=== PATIENT | female | born 1980 | race Caucasian/White ===

== ENCOUNTER 2017-07-25 18:30 | Emergency (ER) | payer BC ==
[~2017-07-25] VITALS: Ht 165.1 cm; Wt 79.0 kg
[~2017-07-25 18:30] MED LIST: TRAM-10 PO
[2017-07-25 18:32] VITALS: Ht 165.1 cm; Wt 79.0 kg
[2017-07-25] MEDS ORDERED: HYDR25CA PO (19:14)
[2017-07-25] MEDS ORDERED: DULO60CA44 PO (19:14)
[2017-07-25] MEDS ORDERED: PRED20TA PO ×2 (19:16→21:31)
[2017-07-25 19:21] LABS: MANUAL MICROSCOPIC REQUIRED? NO; REVIEW REQ? NO; URINE APPEARANCE CLEAR (CLEAR); URINE BILIRUBIN NEG (NEG); URINE COLOR YELLOW; URINE NITRITE NEG (NEG); URINE PH 7.5 (4.5-7.5); URINE SPECIFIC GRAVITY 1.009 (1.000-1.030); UROBILINOGEN NEG (NEG); ZZUR CULT IF INDIC CLEAN CATCH NO
[2017-07-25 19:39] LABS: BLOOD UREA NITROGEN 19 mg/dl (7-18); BUN/CREATININE RATIO 17.1 (10-20); CALCIUM 8.6 mg/dl (8.5-10.1); CARBON DIOXIDE 27 mmol/L (21-32); CHLORIDE 103 mmol/L (98-107); GLUCOSE 112 mg/dl (70-99); POTASSIUM 4.1 mmol/L (3.5-5.1); SODIUM 135 mmol/L (136-145)
[2017-07-25 19:42] LABS: ALKALINE PHOSPHATASE 54 U/L (45-117); ALT/SGPT 23 U/L (12-78); AST/SGOT 8 U/L (15-37); C-REACTIVE PROTEIN < 0.29 mg/dl (0-0.29)
--- NOTE | 2017-07-25 20:02 | EMERGENCY ROOM VISIT NOTE ---
History Report prepared by Wily: Lacey Julio Under the Supervision of: Dr. Rodrigo Hernández M.D. 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 The patient was at work when her coworker noticed a rash starting on her left cheek. She decided to come in to the ED. The patient has also had bruising and itching on her sides and leg. The bruising is not painful. She saw her PCP for this and was started on steroids and an anti-itch medication. The bruising seems to be spreading, but the itching is improved. She denies applying anything to her face. She reports trying an oatmeal bath for the itching to no significant relief. She has tried oatmeal baths in the past without any reaction. She denies any fever, chills, blurry vision, nausea, vomiting, diarrhea, urinary symptoms, cough, or congestion. She denies any trauma or tick bites. She does not often go into the [place]. She denies any chance of . Her last period was 3 weeks ago. She is still taking the steroids. She has a family history of scleroderma, lupus, and MS. Source of History: patient Onset: THERMOFORMING OPERATOR Position: other (left cheek) Quality: other (rash) Timing: other (persistent) Associated Symptoms: No fevers, No chills, No cough, No nausea, No vomiting , No diarrhea, No urinary symptoms Note: Pt reports bruising and itching on her sides and leg. Pt denies blurry vision, congestion. Review of Systems See HPI for pertinent positives and negatives. A total of ten systems were reviewed and were otherwise negative. Past Medical & Surgical Medical Problems: (1) Cervical radiculopathy due to degenerative joint disease of spine Family History MS (multiple sclerosis) Scleroderma Social History Smoking Status: Never Smoker Marital Status: Occupation Status: employed Current/Historical Medications Scheduled Duloxetine Hcl (Cymbalta), 60 MG PO DAILY Hydroxyzine Pamoate (Vistaril), 25 MG PO TID Prednisone (Prednisone), 20 MG PO DIRECTED Prednisone (Prednisone), 0 PO DAILY Allergies Coded Allergies: Amoxicillin (Verified Allergy, Intermediate, HIGH FEVER, FULL BODY RASH, 07/25/17) Bupropion (Verified Allergy, Intermediate, "ALL OVER BODY RASH", 07/25/17) Cefaclor (Verified Allergy, Intermediate, HIGH FEVER, FULL BODY RASH, ) Erythromycin (Verified Allergy, Intermediate, HIGH FEVER, FULL BODY RASH, 07/25/17) Penicillins (Verified Allergy, Intermediate, HIGH FEVER, FULL BODY RASH, 07/25/17) Sulfa Antibiotics (Verified Allergy, Intermediate, HIGH FEVER, FULL BODY RASH, 07/25/17) Sulfamethoxazole w/Trimethoprim (Verified Allergy, Intermediate, HIGH FEVER, FULL BODY RASH, 07/25/17) Physical Exam Vital Signs Date Time Temp Pulse Resp B/P (MAP) Pulse Ox O2 Delivery O2 Flow Rate FiO2 07/25/17 22:01 36.6 79 16 116/76 97 07/25/17 21:00 79 16 116/76 97 Room Air 07/25/17 18:32 36.6 81 16 151/95 96 Room Air Physical Exam GENERAL: Awake, alert, anxious-appearing, in no acute distress HENT: Normocephalic, atraumatic. Oropharynx unremarkable. EYES: Normal conjunctiva. Sclera non-icteric. NECK: Supple. No nuchal rigidity. FROM. No JVD. RESPIRATORY: Clear to auscultation. CARDIAC: Regular rate, normal rhythm. Extremities warm and well perfused. Pulses equal. ABDOMEN: Soft, non-distended. No tenderness to palpation. No rebound or guarding. No masses. RECTAL: Deferred. MUSCULOSKELETAL: Chest examination reveals no tenderness. The back is symmetrical on inspection without obvious abnormality. There is no CVA tenderness to palpation. No joint edema. LOWER EXTREMITIES: Calves are equal size bilaterally and non-tender. No edema. No discoloration. NEURO: Normal sensorium. No sensory or motor deficits noted. SKIN: Scattered areas of small contusions throughout her body, left face has dry scaly, erythematous rash, without warmth or tenderness Medical Decision & Procedures Laboratory Results 07/25/17 20:12 Red Blood Count 3.99, Mean Corpuscular Volume 96.0, Mean Corpuscular Hemoglobin 33.3, Mean Corpuscular Hemoglobin Concent 34.7, Mean Platelet Volume 10.5, Neutrophils (%) (Auto) 85.5, Lymphocytes (%) (Auto) 9.6, Monocytes (%) (Auto) 4.4, Eosinophils (%) (Auto) 0.0, Basophils (%) (Auto) 0.1, Neutrophils # (Auto) 11.37, Lymphocytes # (Auto) 1.27, Monocytes # (Auto) 0.58, Eosinophils # (Auto) 0.00, Basophils # (Auto) 0.01 07/25/17 19:10 Test 07/25/17 18:52 07/25/17 19:10 07/25/17 20:12 Urine Color YELLOW Urine Appearance CLEAR (CLEAR) Urine pH 7.5 (4.5-7.5) Urine Specific [place] 1.009 (1.000-1.030) Urine Protein NEG (NEG) Urine Glucose (UA) NEG (NEG) Urine Ketones NEG (NEG) Urine Occult Blood NEG (NEG) Urine Nitrite NEG (NEG) Urine Bilirubin NEG (NEG) Urine Urobilinogen NEG (NEG) Urine Leukocyte Esterase NEG (NEG) Urine Test NEG (NEG) Erythrocyte Sedimentation Rate 6 mm/hr (0-21) Anion Gap 5.0 mmol/L (3-11) Est Creatinine Clear Calc Drug Dose 74.1 ml/min Estimated GFR () 75.3 Estimated GFR (Non- 65.0 BUN/Creatinine Ratio 17.1 (10-20) Calcium Level 8.6 mg/dl (8.5-10.1) Total Bilirubin 0.3 mg/dl (0.2-1) Direct Bilirubin < 0.1 mg/dl (0-0.2) Aspartate Amino Transf (AST/SGOT) 8 U/L (15-37) Alanine Aminotransferase (ALT/SGPT) 23 U/L (12-78) Alkaline Phosphatase 54 U/L (45-117) C-Reactive Protein < 0.29 mg/dl (0-0.29) Total Protein 7.6 gm/dl (6.4-8.2) Albumin 3.5 gm/dl (3.4-5.0) Lyme Disease IgG Antibody NEG (NEG) White Blood Count 13.28 K/uL (4.8-10.8) Red Blood Count 3.99 M/uL (4.2-5.4) Hemoglobin 13.3 g/dL (12.0-16.0) Hematocrit 38.3 % (37-47) Mean Corpuscular Volume 96.0 fL (80-100) Mean Corpuscular Hemoglobin 33.3 pg (25-34) Mean Corpuscular Hemoglobin Concent 34.7 g/dl (32-36) Platelet Count 288 K/uL (130-400) Mean Platelet Volume 10.5 fL (7.4-10.4) Neutrophils (%) (Auto) 85.5 % Lymphocytes (%) (Auto) 9.6 % Monocytes (%) (Auto) 4.4 % Eosinophils (%) (Auto) 0.0 % Basophils (%) (Auto) 0.1 % Neutrophils # (Auto) 11.37 K/uL (1.4-6.5) Lymphocytes # (Auto) 1.27 K/uL (1.2-3.4) Monocytes # (Auto) 0.58 K/uL (0.11-0.59) Eosinophils # (Auto) 0.00 K/uL (0-0.5) Basophils # (Auto) 0.01 K/uL (0-0.2) RDW Standard Deviation 43.8 fL (36.4-46.3) RDW Coefficient of Variation 12.5 % (11.5-14.5) Immature Granulocyte % (Auto) 0.4 % Immature Granulocyte # (Auto) 0.05 K/uL (0.00-0.02) Prothrombin Time 10.8 SECONDS (9.0-12.0) Prothromb Time International Ratio 1.0 (0.9-1.1) Activated Partial Thromboplast Time 25.0 SECONDS (21.0-31.0) Partial Thromboplastin Ratio 1.0 Laboratory results reviewed by mt ED Course 1842: The patient was evaluated in room C11B. A complete history and physical exam was performed. 2137: I reevaluated the patient. Discussed results and discharge instructions: She verbalized understanding and agreement. The patient is ready for discharge. Medical Decision I reviewed the patient's past medical history, medications, and the nursing notes as described above. Differential diagnosis: thrombocytopenia, coagulopathy, lyme disease, adverse medication reaction, accidental medication overdose. The patient is a 36-year-old woman who presents emergency Department with redness of her face and persistent unexplained bruising throughout her body after being treated by her PCP with prednisone and Benadryl for related pruritus per hpi. On arrival the patient is anxious appearing but in no acute distress, afebrile with stable vital signs. On exam she has dried scaly erythema the left side of her face without warmth, edema, or ttp. Patient does have scattered areas of bruising throughout her body. However, no petechiae or hand/foot involvement. Of note upon obtaining reconciliation of her medications it was discovered that the patient was inappropriately taking her prednisone and interpreted the instructions is taking 3 tablets 3 times a day and then 3 tablets twice a day and so forth. Labs unremarkable including platelets and coags within normal limits. Thus unclear etiology the patient's easy bruising at this time. Otherwise patient's facial rash is likely a dermatitis in the setting of her excessive prednisone use. However given this will provide additional steroid taper so patient can complete her steroid regimen safely. Patient does have a family history of autoimmune disorders and thus will help arrange a nonemergent follow-up with rheumatology, case management assisting. Of note the patient did have an equivocal Lyme screen, given no clear history of tick exposures or rashes Will wait for Western blot, this was discussed with the patient. Findings and plan for follow-up reviewed with patient. Patient agreeable and d/c'd per discharge instructions. Medication Reconcilliation Current Medication List: was personally reviewed by me Blood Pressure Screening Patient's blood pressure: Normal blood pressure Blood pressure disposition: Did not require urgent referral Impression Primary Impression: Multiple contusions Additional Impression: Dermatitis Scribe Attestation The scribe's documentation has been prepared under my direction and personally reviewed by me in its entirety. I confirm that the note above accurately reflects all work, treatment, procedures, and medical decision making performed by me. Departure Information Dispostion Home / Self-Care Prescriptions Prednisone (Prednisone) 20 Mg Tab 0 PO DAILY, #18 TAB 3 DAILY FOR 3 DAYS, THEN 2 DAILY FOR 3 DAYS, THEN 1 DAILY FOR 3 DAYS. Prov: Rodrigo Hernández M.D. 07/25/17 Referrals Lenny Dover DO (PCP) Maria Elena Davis MD Patient Instructions Bruises Contusions, ED Dermatitis Atopic Eczema, My [facility] Additional Instructions Please follow up with your primary care physician in the next week for re- evaluation as well as with rheumatology (given your symptoms and family history of autoimmune diseases), Dr. Davis. Our case management team will help to facilitate an appointment. You cause of your bruising is unclear at this time however the dermatitis to her face is most likely due to accidentally taking excessive prednisone. Given this, we will give you a new tapering regimen that you should take going forward. Otherwise, your exam and lab results did not show signs of an emergent condition at this time. Prednisone as directed. Return to the emergency department for worsening symptoms as described in the accompanying instructions. Problem Qualifiers
[2017-07-25 20:07] LABS: LYME DISEASE AB IGG NEG (NEG); LYME DISEASE AB IGM EQUIVOCAL (NEG)
[2017-07-25 20:45] LABS: PROTHROMBIN TIME (PATIENT) 10.8 SECONDS (9.0-12.0)
[2017-07-25 20:46] LABS: BASO % 0.1 %; BASO ABS # 0.01 K/uL (0-0.2); COMPLETE YES; HEMATOCRIT 38.3 % (37-47); IG% 0.4 %; LYMPH % 9.6 %; LYMPH ABS # 1.27 K/uL (1.2-3.4); MEAN CORPUSCULAR HEMOGLOBIN 33.3 pg (25-34); MEAN CORPUSCULAR HGB CONC 34.7 g/dl (32-36); MEAN PLATELET VOLUME 10.5 fL (7.4-10.4); MONO % 4.4 %; NEUT % 85.5 %; PLATELET COUNT 288 K/uL (130-400); RED BLOOD COUNT 3.99 M/uL (4.2-5.4); WHITE BLOOD COUNT 13.28 K/uL (4.8-10.8)
[2017-07-25 22:01] VITALS: BP 116/76; PULSE 79; TEMP 36.6; O2SAT 97
== END 2017-07-25 22:02 | disposition home or self-care (01) ==
LOC: C.EDB 18:32 → C.EDC 22:02
DX: T14.8XXA Other injury of unspecified body region, initial encounter (principal); L30.9 Dermatitis, unspecified; X58.XXXA Exposure to other specified factors, initial encounter; M47.22 Other spondylosis with radiculopathy, cervical region; Z82.69 Family history of other diseases of the musculoskeletal system and connective tissue; Z83.49 Family history of other endocrine, nutritional and metabolic diseases; Z82.0 Family history of epilepsy and other diseases of the nervous system

== ENCOUNTER 2019-04-15 08:14 | Observation (INO) ==
--- NOTE | 2019-04-10 08:39 | Anesthesiology Consultation ---
Date of Service April 10, 2019 Assessment & Plan (1) Encounter for pre-operative examination: - Check test AM DOS Chart Review Chart Review: Pending: Refer to Additional Notes / Consult section (preop te sting (labs)) and Patient seen in Pre Admission Testing Teaching & Discussion Pre-Anesthesia Teaching/Discussion Notes: Instructed NPO after midnight before surgery,except medications with 15 cc of water. Medication instructions provided according to the PAT guidelines. History Surgery Operation Date: 04/15/19 09:50 Proposed Procedures p Bilateral Reduction Mammoplasty - Melita Steen MD Height/Weight Height: 5 ft 6 in Weight: 82 kg Allergies Allergy/AdvReac Type Severity Reaction Status Date / Time amoxicillin Allergy Intermediate HIGH Verified 04/10/19 08:19 FEVER, FULL BODY RASH Bactrim Allergy Intermediate HIGH Verified 03/30/19 14:33 FEVER, FULL BODY RASH cefaclor Allergy Intermediate HIGH Verified 04/10/19 08:19 FEVER, FULL BODY RASH erythromycin base Allergy Intermediate HIGH Verified 04/10/19 08:19 FEVER, FULL BODY RASH Penicillins Allergy Intermediate HIGH Verified 04/10/19 08:19 FEVER, FULL BODY RASH Sulfa (Sulfonamide Allergy Intermediate HIGH Verified 04/10/19 08:19 Antibiotics) FEVER, FULL BODY RASH sulfamethoxazole Allergy Intermediate HIGH Verified 04/10/19 08:19 FEVER, FULL BODY RASH trimethoprim Allergy Intermediate HIGH Verified 04/10/19 08:19 FEVER, FULL BODY RASH Medications Home Medications Medication Instructions Recorded Confirmed Last Taken bupropion HCl 150 mg PO QAM 04/10/19 04/10/19 Unknown fluoxetine 20 mg PO HS 04/10/19 04/10/19 Unknown Past Medical History Medical History Anxiety Exercise / Class Metabolic Activity II 4-5 Yardwork/Stairs/Walk up hill Past Family History Family History Grandfather (Maternal) Family history of diabetes mellitus Grandmother (Maternal) Family history of diabetes mellitus Mother Family hx of colon cancer Past Surgical History Surgical History Fusion of spine ACDF C5-7 History of colonoscopy [place] teeth removed Past Anesthesia History No Hx of Anesthesia Complications and No Family Hx of Anesthesia Complications History of PONV No Hx of PONV and No Hx of Motion Sickness Social History Smoking Status: Former smoker tobacco type: cigarettes Smoking cigarettes per day: QUIT 12 YEARS AGO Do You Dip or Chew Tobacco: No Hx Alcohol Use: Yes Alcohol type: beer, wine and hard liquor alcohol intake frequency: a few times a month Hx Substance Use: No substance use type: does not use Review of Systems Patient denies chest pain, shortness of breath, dyspnea on exertion, reflux, cough, wheezing, palpitations. Physical Exam Vital Signs VITALS B 108/77P P 73 TEMP 97.8 SP02 98%RA RESP 16 PHYSICAL Full neck and c-spine range of motion. Full TMJ range of motion. TMD 4 finger breaths Mallampati Score 2 Dentition: intact Lungs: clear throughout to auscultation Cardiac: regular rate and rhythm, no murmurs noted Spine: normal Carotid arteries: negative bruit Extremities: no edema
[2019-04-10 11:04] LABS: Basophils # (auto) 0.07 K/uL (0-0.2); Basophils % (auto) 0.8 %; Eosinophils # (auto) 0.22 K/uL (0-0.5); Eosinophils % (auto) 2.4 %; Hematocrit (blood only) 39.5 % (37-47); Hemoglobin 13.4 g/dL (12.0-16.0); Immature Granulocytes # (auto) 0.02 K/uL (0.00-0.02); Immature Granulocytes % (auto) 0.2 %; Lymphocytes # (auto) 2.38 K/uL (1.2-3.4); Lymphocytes % (auto) 26.2 %; Mean Corpuscular Hemoglobin 32.8 pg (25-34); Mean Corpuscular Hgb Conc 33.9 g/dL (32-36); Mean Corpuscular Volume 96.6 fL (80-100); Mean Platelet Volume 10.5 fL (7.4-10.4); Monocytes # (auto) 0.62 K/uL (0.11-0.59); Monocytes % (auto) 6.8 %; Neutrophils # (auto) 5.76 K/uL (1.4-6.5); Neutrophils % (auto) 63.6 %; Platelet Count 268 K/uL (130-400); RDW Coefficient of Variation 12.4 % (11.5-14.5); RDW Standard Deviation 43.5 fL (36.4-46.3); Red Blood Count 4.09 M/uL (4.2-5.4); White Blood Count 9.07 K/uL (4.8-10.8)
[2019-04-10 11:23] LABS: Partial Thromboplastin Time 26.7 Seconds (21.0-31.0); Prothrombin Time 10.3 Seconds (9.0-12.0)
[2019-04-10 11:29] LABS: Calcium 8.5 mg/dl (8.5-10.1); Creatinine Clr Calc Pharmacy 109.4 ml/min; Est GFR (African American) 116.1; Est GFR (Non-African American) 100.2; Potassium 3.8 mmol/L (3.5-5.1)
[~2019-04-15 08:14] MED LIST changes: +CLINDAMYCIN 600 MG/54 ML BAG IV SCH; +LR 15ML/HR IV SCH; -TRAM-10 PO
[2019-04-15] MEDS ORDERED: fentaNYL citrate 100 MCG/2 ML VIAL ONE (08:35)
[2019-04-15] MEDS ORDERED: MIDAZOLAM HCL 1 MG/ML 2ML VIAL ONE (08:35)
[2019-04-15] MEDS ORDERED: LIDOCAINE/EPINEPHRINE 1% 20 ML VIAL ONE (09:13)
[2019-04-15] MEDS ORDERED: BUPIVACAINE 0.25% 30 ML VIAL ONE (09:13)
[2019-04-15] MEDS ORDERED: PROMETHAZINE HCL 12.5 MG in SODIUM CHLORIDE 0.9% 50 ML IV PRN ×2 (09:23→13:58)
[2019-04-15] MEDS ORDERED: ONDANSETRON INJ 2 MG/ML 2 ML VIAL IV PRN ×2 (09:23→13:58)
[2019-04-15] MEDS ORDERED: ATROPINE SULFATE 0.1 MG/ML 10ML SYR IV PRN (09:23)
[2019-04-15] MEDS ORDERED: MoRPHine SULFATE 10 MG/ML CARP/VIAL IV PRN (09:23)
[2019-04-15] MEDS ORDERED: ePHEDrine sulfate 50 MG/ML AMP IV PRN (09:23)
--- NOTE | 2019-04-15 09:29 | History & Physical Bridge Note ---
Date of Service April 15, 2019 History & Physical Bridge Note I have examined the patient, reviewed the History & Physical and in the interval since the performance of the History & Physical I have noted the following changes of clinical significance: no changes noted
[2019-04-15] MEDS ORDERED: MoRPHine SULFATE PF 1 MG/ML 10 ML AMP/VIAL ONE (10:19)
[2019-04-15] MEDS ORDERED: DEXAMETHASONE SOD INJ 4 MG/ML VIAL ONE (10:24)
[2019-04-15] MEDS ORDERED: LIDOCAINE HCL 2% 2 ML VIAL/AMP(20MG/ML) INFIL ONE (10:24)
[2019-04-15] MEDS ORDERED: ONDANSETRON INJ 2 MG/ML 2 ML VIAL ONE (10:24)
[2019-04-15] MEDS ORDERED: NEOSTIGMINE METHYLSULFATE 5 MG/5 ML SYR ONE (10:24)
[2019-04-15] MEDS ORDERED: GLYCOPYRROLATE 0.2 MG/ML VIAL ONE (10:24)
[2019-04-15] MEDS ORDERED: ROCURONIUM BROMIDE 10 MG/ML 5 ML VIAL ONE (10:24)
[2019-04-15] MEDS ORDERED: PROPOFOL IV EMULSION 10 MG/ML 20 ML VIAL IV ONE (10:24)
[2019-04-15] MEDS ORDERED: PHENYLEPHRINE 100MCG/ML 5ML SYR ONE (10:24)
[2019-04-15] MEDS ORDERED: LARYING-O-JET KIT (LTA) ONE (10:24)
[2019-04-15] MEDS ORDERED: ACETAMINOPHEN 1000 MG/100 ML IV IV ONE (10:50)
--- NOTE | 2019-04-15 13:56 | Post Operative Brief Note ---
Immediate Post Op Note v1 Date of Surgery April 15, 2019 Pre & Post Diagnosis Operation Date: 04/15/19 09:50 Pre-Op Diagnosis: Symptomatic Bilateral Macromastia Post-Op Diagnosis: Symptomatic Bilateral Macromastia Procedure Operation Date: 04/15/19 09:50 Actual Procedures p Bilateral Breast Reduction(Bilateral) - Melita Steen MD Surgeon Melita Steen MD Rfid Systems Engineer Cecilia Saenz PA-C Estimated Blood Loss 25 Findings Consistent with Post-Op Diagnosis Specimens left breast 570 grams, right breast 532 grams Drains Rusty-Morley Drain (x2) Anesthesia Type General Complications none Disposition Disposition: Recovery Room
[2019-04-15] MEDS ORDERED: OXYCODONE/ACETAMINOPHEN 5mg/325mg TAB PO PRN (13:58)
[2019-04-15] MEDS ORDERED: OXAZEPAM 10 MG CAPSULE PO PRN (13:58)
[2019-04-15] MEDS ORDERED: DiphenhydrAMINE HCL 50 MG/ML VIAL IV PRN (13:58)
[2019-04-15] MEDS ORDERED: MoRPHine SULFATE 4 MG/ML 1 ML CARP\\VIAL IV PRN (13:58)
[2019-04-15] MEDS ORDERED: ACETAMINOPHEN 325 MG TAB PO PRN (13:58)
--- NOTE | 2019-04-15 13:59 | Operative Report ---
Post Operative Report Pre & Post Diagnosis Operation Date: 04/15/19 09:50 Pre-Op Diagnosis: Symptomatic Bilateral Macromastia Post-Op Diagnosis: Symptomatic Bilateral Macromastia Procedure Operation Date: 04/15/19 09:50 Actual Procedures p Bilateral Breast Reduction(Bilateral) - Melita Steen MD Surgeon Melita Steen MD [facility] Nurse Cecilia Saenz PA-C Estimated Blood Loss 25 Findings Consistent with Post-Op Diagnosis Specimens left breast tissue 570 grams, right breast tissue 532 grams Drains DIONICIO x2 Anesthesia Type General Complications none Disposition Disposition: Recovery Room Indications back, neck and shoulder pain due to macromastia Description of Procedure The risks, benefits, and alternatives of the procedure were explained to the patient who agreed and signed consent. She was identified and marked in the preoperative holding area. She was brought to the operating room where she was positioned supine and placed under general anesthesia without incident. Surgical site was prepped and draped sterilely. A time-out procedure was performed. I began with the left side. Markings were reassessed and a 7 cm pedicle was marked. 1% lidocaine with epinephrine was used to anesthetize the planned incisions. A 42 mm cookie cutter was used to circumscribe the nipple-areolar complex. The previously marked 7 cm pedicle was incised using a 15 blade scalpel and deepithelized. I began with the medial dissection of the pedicle using the Peak Plasmablade. Cautery was used to incise through dermis and breast parenchyma down to the chest wall, taking care not to undermine the pedicle during dissection. A similar procedure was undertaken on the lateral aspect of the pedicle again taking care not to undermine. Lastly, the pedicle was dissected out superiorly using the Peak Plasmablade and this was carried down to the chest wall as well. I then began with excision of the medial breast tissue followed by lateral aspect of the breast tissue and surrounding keyhole incision. A 15 blade scalpel was used to make the inframammary fold incision and the Peak Plasmablade was used to deepen the incision through dermis and breast parenchyma. Dissection was then carried superiorly to the level of the superior incision. Superior incision was then incised using a 15 blade scalpel and again dissected using the Peak Plasmablade. This was undertaken laterally and then around the keyhole portion of the incision. Care was taken to leave some fat on the lateral pectoralis fascia in order to protect the T4 intercostal nerve. Hemostasis was achieved with the Peak Plasmablade. The specimen was passed off in its entirety for weighing. Additional resection was undertaken from the superior flap in order to facilitate closure of the breast and to provide the best shape. The total resection weight of the left breast was 570 grams. The wound was irrigated with saline and hemostasis was achieved with the Peak Plasmablade. 0.25% Marcaine plain was used to anesthetize the incisions as well as the pectoralis fascia. A 15 [place] Darin drain was brought out through a separate stab incision. The nipple-areolar complex was brought into the keyhole using 2-0 Vicryl deep dermal suture. The wound was closed first in a lateral to mid breast direction and then medial to mid breast direction using 2-0 Vicryl deep dermal sutures. Vertical limb was also approximated using 2-0 Vicryl deep dermals and the nipple-areolar complex was inset using 2-0 Vicryl deep dermal sutures. Next, the superficial dermal layer was closed using 2-0 PDO running Quill suture along the inframammary fold and 3-0 PDS interrupted dermal sutures along the vertical limb and nipple- areolar complex. Lastly 3-0 Monocryl running subcuticular suture was placed. A similar procedure was undertaken on the right side with maximal excision weight of 532 grams. Breasts were symmetric and nipple-areolar complexes were viable bilaterally following wound closure. Dermabond Prineo was applied along the inframammary fold and vertical limb and Dermabond was placed around the nipple-areolar complex. Dry dressings and a surgical bra were placed. The patient was awakened and transferred to recovery room in satisfactory condition. Cecilia Saenz PA-C was present and scrubbed throughout the procedure and was instrumental in providing retraction during dissection of the pedicle and assisting in wound closure. I attest to the content of the Intraoperative Record and any orders documented therein. Any exceptions are noted below.
[2019-04-15] MEDS: fentaNYL citrate 100 MCG/2 ML VIAL IV PRN ×2 (14:28→14:59)
--- NOTE | 2019-04-15 15:26 | Anesthesiology Progress Note ---
Date of Service April 15, 2019 Anesthesia Post Procedure Vital Signs Vital Signs: Temp Pulse Pulse Resp BP BP Pulse Ox 04/15/19 15:15 70 13 107/75 99 04/15/19 15:05 64 13 112/71 98 04/15/19 14:55 36.6 C 73 19 111/75 98 04/15/19 14:45 83 17 107/67 99 04/15/19 14:35 73 12 107/71 99 04/15/19 14:25 66 16 108/66 99 04/15/19 14:15 65 12 105/68 98 04/15/19 14:08 36.5 C 89 16 114/81 99 04/15/19 08:38 36.6 C 73 18 130/72 95 Pain Intensity Bilateral Breast: Pain Intensity: 4 Transfer of Care Handoff Completed per policy Notes Mental Status: alert / awake / arousable and participated in evaluation Patient Amnestic to Procedure: Yes Nausea / Vomiting: adequately controlled Pain: adequately controlled Airway Patency, RR, SpO2: stable & adequate BP & HR: stable & adequate Hydration State: stable & adequate Anesthetic Complications: no major complications apparent and Pt Satisfied with anesthetic care
[2019-04-15] MEDS: D5W AND 1/2NSS + 20MEQ KCL 20 MEQ/1,000 ML BAG IV SCH (16:07)
[2019-04-15] MEDS: MoRPHine SULFATE 4 MG/ML 1 ML CARP\\VIAL IV PRN ×2 (16:19→17:49)
[2019-04-15] MEDS: CLINDAMYCIN 600 MG in DEXTROSE 5% 50 ML IV SCH (17:01)
[2019-04-15] MEDS: OXYCODONE/ACETAMINOPHEN 5mg/325mg TAB PO PRN (20:05)
[2019-04-15] MEDS ORDERED: FLUOXETINE HCL 20 MG CAP PO SCH (21:00)
[2019-04-16] MEDS: OXYCODONE/ACETAMINOPHEN 5mg/325mg TAB PO PRN ×2 (00:09→10:18)
[2019-04-16] MEDS: CLINDAMYCIN 600 MG in DEXTROSE 5% 50 ML IV SCH ×2 (01:21→08:42)
[2019-04-16] MEDS: MoRPHine SULFATE 2 MG/ML CARP IV PRN ×2 (03:50→07:47)
[2019-04-16] MEDS: D5W AND 1/2NSS + 20MEQ KCL 20 MEQ/1,000 ML BAG IV SCH (05:48)
--- NOTE | 2019-04-16 07:53 | Anesthesiology Progress Note ---
Date of Service April 16, 2019 Anesthesia Post Procedure Vital Signs Vital Signs: Temp Pulse Pulse Pulse Pulse Resp BP 04/16/19 07:49 36.6 C 77 16 04/16/19 03:30 36.4 C L 76 17 04/15/19 23:00 36.5 C 65 16 04/15/19 18:30 36.6 C 71 16 04/15/19 17:30 36.6 C 86 16 04/15/19 16:29 36.4 C L 70 16 04/15/19 15:58 36.4 C L 74 16 04/15/19 15:30 36.5 C 78 14 04/15/19 15:15 70 13 04/15/19 15:05 64 13 04/15/19 14:55 36.6 C 73 19 04/15/19 14:45 83 17 04/15/19 14:35 73 12 04/15/19 14:25 66 16 04/15/19 14:15 65 12 04/15/19 14:08 36.5 C 89 16 04/15/19 08:38 36.6 C 73 18 130/72 BP Pulse Ox 04/16/19 07:49 99/68 L 96 04/16/19 03:30 102/67 93 04/15/19 23:00 108/73 95 04/15/19 18:30 107/68 95 04/15/19 17:30 114/75 95 04/15/19 16:29 116/71 94 04/15/19 15:58 115/74 93 04/15/19 15:30 104/64 97 04/15/19 15:15 107/75 99 04/15/19 15:05 112/71 98 04/15/19 14:55 111/75 98 04/15/19 14:45 107/67 99 04/15/19 14:35 107/71 99 04/15/19 14:25 108/66 99 04/15/19 14:15 105/68 98 04/15/19 14:08 114/81 99 04/15/19 08:38 95 Pain Intensity Bilateral Breast: Pain Intensity: 7 Notes Mental Status: alert / awake / arousable and participated in evaluation Patient Amnestic to Procedure: Yes Nausea / Vomiting: adequately controlled Pain: adequately controlled Airway Patency, RR, SpO2: stable & adequate BP & HR: stable & adequate Hydration State: stable & adequate Anesthetic Complications: no major complications apparent and Pt Satisfied with anesthetic care
--- NOTE | 2019-04-16 08:23 | Surgery Progress Note ---
Date of Service April 16, 2019 Assessment & Plan (1) S/P bilateral breast reduction: POD #1 s/p Bilateral Breast Reduction due to Symptomatic Bilateral Macromastia. Pt is doing well and reports immense improvement in neck, shoulder, and back pain since surgery. Her pain is well-controlled with PO pain medication. Tolerating PO intake well. Voiding on own. DIONICIO drains x2 removed this AM without issue. Discharge instructions reviewed with patient. Patient to follow-up with me in office tomorrow AM. She understands that she is to keep dressing dry and in place. She is not allowed to shower. Pt ok for discharge. Subjective Roxann is resting comfortably in bed as I entered the room. She reports that pain is a 2/10- well controlled with PO pain medication. She denies nausea or vomiting. Tolerating regular diet without issue. Voiding without issue. Ambulating on own without issue. Pt reports an improvement in neck, shoulder and back pain. Physical Exam Physical Exam: DIONICIO drains x [address] with serosang drainage- drains removed at bedside without issue- optifoam dressing x2 placed. Surgical dressings are clean, dry, intact. Nipples are pink, viable and with sensation. Results & Data Vital Signs (Past 12 Hours) Vital Signs Temp Pulse Pulse Resp BP Pulse Ox 04/16/19 07:49 36.6 C 77 16 99/68 L 96 04/16/19 03:30 36.4 C L 76 17 102/67 93 04/15/19 23:00 36.5 C 65 16 108/73 95 PG Care Time/CCT Total # of Minutes Spent Total Time Spent with Patient: Total time spent is greater than 50% in c oordination of care (as documented) at patient's floor/unit and/or counseling patient:
[2019-04-16] MEDS ORDERED: BuPROPion XL 150 MG TABCR PO SCH (09:00)
[2019-04-16] MEDS ORDERED: MULTIVITAMIN TAB PO SCH (09:00)
--- NOTE | 2019-04-17 08:42 | Discharge Summary ---
Date of Service April 17, 2019 Admission HPI Per Admitting Provider Please see admission H and P. Principal Diagnosis Symptomatic Breast Hypertrophy Discharge Data Allergies Allergy/AdvReac Type Severity Reaction Status Date / Time amoxicillin Allergy Intermediate HIGH Verified 04/15/19 08:36 FEVER, FULL BODY RASH Bactrim Allergy Intermediate HIGH Verified 03/30/19 14:33 FEVER, FULL BODY RASH cefaclor Allergy Intermediate HIGH Verified 04/15/19 08:36 FEVER, FULL BODY RASH erythromycin base Allergy Intermediate HIGH Verified 04/15/19 08:36 FEVER, FULL BODY RASH Penicillins Allergy Intermediate HIGH Verified 04/15/19 08:36 FEVER, FULL BODY RASH Sulfa (Sulfonamide Allergy Intermediate HIGH Verified 04/15/19 08:36 Antibiotics) FEVER, FULL BODY RASH sulfamethoxazole Allergy Intermediate HIGH Verified 04/15/19 08:36 FEVER, FULL BODY RASH trimethoprim Allergy Intermediate HIGH Verified 04/15/19 08:36 FEVER, FULL BODY RASH Procedures Performed Operation Date: 04/15/19 09:50 Actual Procedures p Bilateral Breast Reduction(Bilateral) - Melita Steen MD Hospital Course (1) S/P bilateral breast reduction: Roxann is a 38-year-old female with symptomatic breast hypertrophy. She was taken to the OR and underwent bilateral breast reduction. There were no intraoperative complications. She was taken to recovery and transferred to med/surg for observation. On POD #1, she was feeling sore, but overall doing well. She was tolerating a regular diet, voiding on her own, and ambulating. On exam, her vitals were stable. Her incisions were CDI and nipples viable. Her drains were removed. She was discharged home with instructions to follow-up in the office in one day. Total Time Total Time Spent Total Time Spent (In Minutes): 5 Discharge Plan Discharge Items Patient Disposition: Home - Self-Care Reason For Visit: Symptomatic Macromastia Discharge Diagnosis: Symptomatic Macromastia Activity: As commented below Non-emergency contact: Surgeon Call non-emergency contact if: you have any medication questions, your pain is not controlled, your temperature is above 101.5, your wound has increased redness and your wound has increased drainage Follow-up/Referrals: Lenny Dover [Primary Care Provider] - Diet: Regular Addtl Attending Provider Instructions: ACTIVITY RECOMMENDATIONS: __Normal activities _X_No bending, lifting or straining __No driving _X_Driving allowed when you are off pain medications _X_Walking permitted __You should have help at home for ___ days DRESSINGS: __No dressings required _X_Keep dressings dry/in place until first office visit __Remove dressings ___ and leave dressings off __Apply ice ___ days __Remove dressings and reapply garment __Apply antibiotic ointment (Bacitracin, Neosporin, etc) to wounds 3-4 times/day for 10 days BATHING: _X_Keep dressings dry _X_Sponge bathing permitted- remember to keep dressings dry. __Showering permitted _X_No swimming, hot tubs or soaking in a tub MEDICATIONS: Resume previous medications unless instructed otherwise by your surgeon. _X_Do not use aspirin, Motrin, Advil or Ibuprofen as these may promote bleeding. Please use Tylenol. _X_Prescription(s) provided: prescription for pain medication provided at last office visit. SPECIAL CARE INSTRUCTIONS: * It is normal to have a mild fever after surgery. If your temperature is higher than 101.5 degrees F, please call the office at [phone]. * Constipation is a typical side effect of pain medication. An [id number] stool softener will help relieve this. * Leaking around surgical drains may occur and should not cause concern. Sometimes these drains become clogged. If this happens, remove the bulb and milk the clot out of the tube, then replace the bulb. * Drainage from wounds after liposuction is normal and should be expected. Garments will become soiled. You should protect furniture and bedding. This drainage should mostly subside within 2-3 days. Leave garments in place unless instructed to remove them. * If you have unusual drainage from a wound or are concerned you have an infection or have any questions or concerns, please call the office at [phone]. FOLLOW UP VISIT: If not already scheduled, please call the office, , when you return home after surgery to schedule an appointment to be seen in _1__ days. Pending Studies at Discharge: Yes Studies:: Pathology report. Stand-Alone Forms: My [facility] Medications and DC Order Prescriptions: Continued fluoxetine 20 mg Tablet 20 mg PO HS RF: 0 bupropion HCl 150 mg Tablet Extended Release 24 Hr 150 mg PO QAM RF: 0 No Action oxycodone-acetaminophen [Endocet] 5-325 mg tablet 1 tab PO Q6H PRN (Reason: pain) 3 Days Qty: 10 RF: 0 Discharge Orders: Discharge Order (Routine); Ordered 04/16/19 Ordered By: Cecilia Soto/Other Patient Handouts: Reduction Breast Dc Admission Data Admit Date/Time: 04/15/19 13:53 Attending Provider: Melita Steen Admit Provider: Melita Steen Primary Care Provider: Lenny Dover Other Interventions: Discharge Summary Assessment (RN) Last Done: 04/16/19 08:35 DC Date/Time DO NOT enter until pt leaves facility: 04/16/19 10:33
== END 2019-04-16 10:33 | disposition home or self-care (01) ==
LOC: 3W 08:14 → ASU 08:14